=== PATIENT | male | born 1960 ===

== ENCOUNTER 2019-05-20 07:35 | Day surgery (SDC) | payer OTHER | END 2019-05-20 15:00 | disposition home or self-care (01) | LOC: AMB-ENDOS 07:35 | DX: K57.32 Diverticulitis of large intestine without perforation or abscess without bleeding (principal); K64.1 Second degree hemorrhoids ==

== ENCOUNTER 2024-04-06 09:39 | Day surgery (SDC) | payer OTHER ==
[~2024-04-06 09:39] MED LIST: ATACAND HCT 161 EACH PO; CLONAZEPAM1 MG PO; LOPRESSOR25 MG PO; TAMS0.4C PO; TRAM1TAB98 PO
[2024-04-06] MEDS ORDERED: BUPIVACAINE HCL/Mpf 0.5% 10ML VIAL ONE (11:49)
[2024-04-06] MEDS ORDERED: LIDOCAINE HCL 1%/EPINEPHRINE 20ML VIAL IJ ONE ×2 (11:49→12:45)
[2024-04-06] MEDS ORDERED: DIBUCAINE 30 GM TUBE ONE (11:49)
[2024-04-06] MEDS ORDERED: CEFTRIAXONE SODIUM 2,000 MG VIAL ONE (11:50)
[2024-04-06] MEDS ORDERED: METRONIDAZOLE/SODIUM CHLORIDE 500 MG/100 ML PIGGYBACK IV ONE ×2 (11:50→12:45)
[2024-04-06] MEDS ORDERED: POVIDONE-IODINE 118 ML BOTT TOP ONE (11:52)
[2024-04-06] MEDS ORDERED: HEMOSTATIC MATRIX 1 KIT KIT TOP ONE ×2 (12:29→12:45)
[2024-04-06] MEDS ORDERED: BUPIVACAINE HCL/PF 0.25% 30ML VIAL InF ONE (12:45)
[2024-04-06] MEDS ORDERED: DIBUCAINE 15 GM OINT..GM. TUBE RECTAL ONE (12:45)
[2024-04-06] MEDS ORDERED: CEFTRIAXONE SODIUM 2,000 MG VIAL IV ONE (12:45)
== END 2024-04-06 19:25 | disposition home or self-care (01) ==
LOC: CIR.AMB 09:39
PROVIDERS: ATTEND Colon & Rectal Surgery
DX: K64.2 Third degree hemorrhoids (principal); K64.4 Residual hemorrhoidal skin tags; K57.32 Diverticulitis of large intestine without perforation or abscess without bleeding; K92.1 Melena; I10 Essential (primary) hypertension; E78.00 Pure hypercholesterolemia, unspecified; Z88.5 Allergy status to narcotic agent